=== PATIENT | male | born 1990 | race Caucasian/White ===

== ENCOUNTER 2017-05-12 16:49 | Emergency (ER) | payer SELFPAY ==
[~2017-05-12] VITALS: Ht 175.3 cm; Wt 77.2 kg
[~2017-05-12 16:49] MED LIST: IBUP600T26 PO; TRAM50 PO
[2017-05-12 17:01] VITALS: BP 160/87; PULSE 73; RESP 18; TEMP 97.5; O2SAT 99
[2017-05-12 17:20] LABS: BLOOD, URINE NEG (NEG); GLUCOSE,URINE NEG (NEG); KETONE, URINE NEG (NEG); NITRITE,URINE NEG (NEG)
[2017-05-12 17:22] LABS: METHOD OF COLLECTION CLEAN CATCH; URINE COLOR YELLOW (YELLW/STRAW)
[2017-05-12 17:25] LABS: COMMENT (UR) CULT NOT INDICATED; CULTURE IF INDICATED CULT NOT INDICATED; WBC, URINE 0-2 /hpf (0-5)
--- NOTE | 2017-05-12 17:27 | PD ---
HPI Chief Complaint: Abdominal Pain Time Seen by Provider: 17:08 Travel History International Travel<30 days: No Contact w/Intl Traveler<30days: No Traveled to known affect area: No History of Present Illness HPI 26-year-old male presents with left upper quadrant abdominal pain that is been present for the past week. He states it comes and goes but given it was not fully going away and he has to work for a couple days and wrote coming up he wanted to get checked out. He states that he saw his primary care doctor couple weeks ago in the push on his belly and said everything felt normal but he didn't have any other testing than that. He states he had blood work 3 months ago that was okay when he first established Dr. lion as his primary care physician. He denies any associated symptoms. Quality is pressure. Severity is moderate. PFSH Past Medical History Medical History: Denies Significant Hx Past Surgical History Surgical History: No Previous Surgery Social History Alcohol Use: No Tobacco Use: No Allergies-Medications (Allergen,Severity, Reaction): Coded Allergies: No Known Allergies (Verified , 05/12/17) Reported Meds & Prescriptions Reported Meds & Active Scripts Active Review of Systems Except as stated in HPI: all other systems reviewed are Neg Physical Exam Narrative GENERAL: Well-nourished, well-developed patient. SKIN: Warm and dry. HEAD: Normocephalic and atraumatic. EYES: No injection or drainage. ENT: No nasal drainage noted. NECK: Supple, trachea midline. CARDIOVASCULAR: Regular rate and rhythm RESPIRATORY: No increased effort. No accessory muscle use. GASTROINTESTINAL: Abdomen soft, non-tender, nondistended. EXTREMITIES: No edema. NEUROLOGICAL: Awake and alert. Motor and sensory grossly within normal limits. Normal speech. Data Data Last Documented VS Vital Signs Date Time Temp Pulse Resp B/P (MAP) Pulse Ox O2 Delivery O2 Flow Rate FiO2 05/12/17 18:24 91 16 148/70 (96) 99 Room Air 05/12/17 17:01 97.5 Orders Orders Complete Blood Count With Diff (05/12/17 17:08) Comprehensive Metabolic Panel (05/12/17 17:08) Urinalysis - C+S If Indicated (05/12/17 17:08) Lipase (05/12/17 17:08) Iv Access Insert/Monitor (05/12/17 17:08) Labs Laboratory Tests Test 05/12/17 17:14 05/12/17 17:55 Urine Collection Type CLEAN CATCH Urine Color YELLOW Urine Turbidity CLEAR Urine pH 7.0 Urine Specific Bryant 1.007 Urine Protein NEG mg/dL Urine Glucose (UA) NEG mg/dL Urine Ketones NEG mg/dL Urine Occult Blood NEG Urine Nitrite NEG Urine Bilirubin NEG Urine Leukocyte Esterase NEG Urine WBC 0-2 /hpf Microscopic Urinalysis Comment CULT NOT INDICATED White Blood Count 5.0 TH/MM3 Red Blood Count 4.89 MIL/MM3 Hemoglobin 14.9 GM/DL Hematocrit 44.0 % Mean Corpuscular Volume 90.0 FL Mean Corpuscular Hemoglobin 30.4 PG Mean Corpuscular Hemoglobin Concent 33.8 % Red Cell Distribution Width 12.3 % Platelet Count 219 TH/MM3 Mean Platelet Volume 8.0 FL Neutrophils (%) (Auto) 65.0 % Lymphocytes (%) (Auto) 18.5 % Monocytes (%) (Auto) 12.2 % Eosinophils (%) (Auto) 3.5 % Basophils (%) (Auto) 0.8 % Neutrophils # (Auto) 3.3 TH/MM3 Lymphocytes # (Auto) 0.9 TH/MM3 Monocytes # (Auto) 0.6 TH/MM3 Eosinophils # (Auto) 0.2 TH/MM3 Basophils # (Auto) 0.0 TH/MM3 CBC Comment DIFF FINAL Differential Comment Blood Urea Nitrogen 16 MG/DL Creatinine 0.99 MG/DL Random Glucose 101 MG/DL Total Protein 7.5 GM/DL Albumin 3.9 GM/DL Calcium Level 8.7 MG/DL Alkaline Phosphatase 77 U/L Aspartate Amino Transf (AST/SGOT) 15 U/L Alanine Aminotransferase (ALT/SGPT) 25 U/L Total Bilirubin 0.7 MG/DL Sodium Level 139 MEQ/L Potassium Level 3.5 MEQ/L Chloride Level 104 MEQ/L Carbon Dioxide Level 25.9 MEQ/L Anion Gap 9 MEQ/L Estimat Glomerular Filtration Rate 90 ML/MIN Lipase 148 U/L [facility] Medical Decision Making Medical Screen Exam Complete: Yes Emergency Medical Condition: Yes Medical Record Reviewed: Yes (past history confirmed) Interpretation(s) CBC & BMP Diagram 05/12/17 17:55 Albumin 3.9, Calcium Level 8.7, Aspartate Amino Transf (AST/SGOT) 15, Alanine Aminotransferase (ALT/SGPT) 25 ua no acute Differential Diagnosis Stone, UTI, pancreatitis, gastritis Narrative Course Will check labs, urinalysis and reevaluate ed workup no acute, Patient denies any new complaints, all questions answered. Patient knows that follow up is incumbent on them and to return to the emergency room immediately if new or worsening symptoms develop. Patient given strict return precautions, vitals reviewed and are normal, agrees to further workup as an outpatient. Diagnosis Primary Impression: Abdominal pain Qualified Codes: R10.12 - Left upper quadrant pain Patient Instructions: General Instructions Additional Instructions: Return as needed, follow with your primary Sunday, Tylenol as needed Med/Other Pt SpecificInfo: No Change to Meds Scripts No Active Prescriptions or Reported Meds Disposition: DISCHARGE HOME Condition: Stable Alea Rose MD May 12, 2017 17:27
[2017-05-12 18:01] LABS: AUTOMATED NEUTROPHIL # 3.3 TH/MM3 (1.8-7.7); BASOPHIL % 0.8 % (0.0-2.0); EOSINOPHIL # 0.2 TH/MM3 (0-0.4); EOSINOPHIL % 3.5 % (0.0-4.0); HEMO FLAGS DIFF FINAL; LYMPH % 18.5 % (9.0-44.0); LYMPHOCYTE # 0.9 TH/MM3 (1.0-4.8); MEAN CORPUSCULAR HEMOGLOBIN 30.4 PG (27.0-34.0); MEAN CORPUSCULAR HGB CONC 33.8 % (32.0-36.0); MONO % 12.2 % (0.0-8.0); PLATELET COUNT 219 TH/MM3 (150-450); RED BLOOD COUNT 4.89 MIL/MM3 (4.50-5.90); RED CELL DISTRIBUTION WIDTH 12.3 % (11.6-17.2)
[2017-05-12 18:10] LABS: CHLORIDE 104 MEQ/L (98-107); POTASSIUM 3.5 MEQ/L (3.5-5.1); SODIUM (NA) 139 MEQ/L (136-145)
[2017-05-12 18:14] LABS: ANION GAP 9 MEQ/L (5-15); BICARBONATE 25.9 MEQ/L (21.0-32.0)
[2017-05-12 18:15] LABS: BLOOD UREA NITROGEN 16 MG/DL (7-18)
[2017-05-12 18:17] LABS: ALT (GPT) 25 U/L (12-78); AST (GOT) 15 U/L (15-37); GLOMERULAR FILTRATION RATE 90 ML/MIN (>89)
[2017-05-12 18:19] LABS: TOTAL BILIRUBIN ADULT 0.7 MG/DL (0.2-1.0)
[2017-05-12 18:20] LABS: ALKALINE PHOSPHATASE 77 U/L (45-117)
[2017-05-12 18:24] VITALS: BP 148/70; PULSE 91; RESP 16; O2SAT 99
== END 2017-05-12 18:34 | disposition home or self-care (01) ==
LOC: PHED 16:49
DX: R10.12 Left upper quadrant pain (principal)
CPT/HCPCS: 80053; 81001; 83690; 85025; 99283